=== PATIENT | male | born 1950 | race Caucasian/White ===

== ENCOUNTER → 2016-06-11 | Outpatient (CLI) | payer OTHER, MEDICARE ==
[2016-06-11 13:35] LABS: BASO % 0.3 %; BASO ABS # 0.02 K/uL (0-0.2); COMPLETE YES; EOS % 2.4 %; HEMATOCRIT 42.8 % (42-52); IG% 0.1 %; LYMPH % 20.2 %; LYMPH ABS # 1.54 K/uL (1.2-3.4); MEAN CELL VOLUME 87.3 fL (80-100); MEAN CORPUSCULAR HEMOGLOBIN 30.8 pg (25-34); MEAN CORPUSCULAR HGB CONC 35.3 g/dl (32-36); MEAN PLATELET VOLUME 10.9 fL (7.4-10.4); MONO % 8.5 %; NEUT % 68.5 %; PLATELET COUNT 239 K/uL (130-400); WHITE BLOOD COUNT 7.62 K/uL (4.8-10.8)
[2016-06-11 14:11] LABS: ALT/SGPT 55 U/L (12-78); AST/SGOT 22 U/L (15-37); BLOOD UREA NITROGEN 12 mg/dl (7-18); BUN/CREATININE RATIO 13.1 (10-20); CALCIUM 9.1 mg/dl (8.5-10.1); CARBON DIOXIDE 25 mmol/L (21-32); CHLORIDE 106 mmol/L (98-107); CREATININE 0.89 mg/dl (0.60-1.40); GLUCOSE 102 mg/dl (70-99); POTASSIUM 4.4 mmol/L (3.5-5.1); SODIUM 140 mmol/L (136-145)
[2016-06-11 14:16] LABS: ALB/GLOB RATIO 1.2 (0.9-2); ALKALINE PHOSPHATASE 60 U/L (45-117); CHOLESTEROL 185 mg/dl (0-200); CHOLESTEROL/HDL RATIO 2.5; HDL CHOLESTEROL 73 mg/dl; LDL CHOLESTEROL CALCULATED 97 mg/dl; TRIGLYCERIDES 76 mg/dl (0-150); VERY LOW DENSITY LIPOPROT CALC 15 mg/dl
[2016-06-11 14:31] LABS: ESTIMATED AVERAGE GLUCOSE 117 mg/dl; HA1C FLAG Normal (Normal)
--- NOTE | 2016-06-15 13:55 | CODING QUERY MEDICAL NECESSITY ---
CQSUPPORTING DIAGNOSIS NEEDED A supporting diagnosis is required for the test/procedure performed on this patient in order for us to be reimbursed by the patient's insurance. Please provide a supporting diagnosis for the following test/procedure listed below next to the test name along with your signature. *If there is no additional diagnosis for this patient that would support the following test/procedure please document that below next to the test/procedure. Test(s)/Procedure(s) that require a supporting diagnosis: DOS 06/11/16 GLYCATED HEMOGLOBIN PROSTATE SPECIFIC Provider Signature: Date: Thank you Summer Alvarado Health Information Management Once completed, please kindly fax back to [phone] For questions please call [phone]
== END | disposition home or self-care (01) ==
LOC: C.LABBC 11:09
PROVIDERS: ATTEND Internal Medicine
DX: R06.83 Snoring (principal); R73.09 Other abnormal glucose; Z12.5 Encounter for screening for malignant neoplasm of prostate

== ENCOUNTER → 2016-07-25 | Outpatient (CLI) | payer OTHER, MEDICARE ==
--- NOTE | 2016-07-26 06:47 | PAP/PSG TECHNICIAN REPORT ---
[facility] [employer] Polysomnogram Report Study name: None Report date: 07/26/2016 Study date: 07/25/2016 Referring Physician: DR. Jackie COOPER Name: TAMARA RITCHIE Interpreting Physician: Timothy Mullen M.D. Date of : 1950 [employer]: Devin George RPSGT. Sex: Male Age: 66 StudyType: PSG Weight: 232 lbs 18 inches Height: 66 years, Height Neck Circum: BMI: Medications: LISINOPRIL 20 MG, ASPIRIN 81 MG Patient History PATIENT HAS HISTORY OF CORONARY ARTERY DISEASE, HYPERTENSION, SNORING AND DAYTIME SLEEPINESS. ALSO, HAS WITNESSED APNEAS AT TIMES. HE IS HERE TODAY FOR AN EVALUATION OF DELANEY. ESS = 4 RM 7 Parameters Monitored NPSG: E1-M2, E2-M1, Fp1-M2, Fp2-M1, F3-M2, F4-M2, F4-M1, C3-M2, C4-M2, C4-M1, O1-M2, O2-M2, O2-M1, T3-M2, T4-M1, P3-M2, P4-M1, CHIN1, CHIN2, HR, EKG, Legs, PFLOW, SNOR, FLOW, CFLOW, Tidal Volume, THOR, ABDO, SpO2, PLTH, CPRESS, ETCO2 Wave, ETCO2, pH Sleep Architecture Sleep Stages Time at Lights Off 10:33:39 PM STAGES Time (min.) TST (%) Time at Lights On 5:28:09 AM Wake 109.0 -- Total Recording Time (TRT) 415.00 min. N1 31.0 10 Total Sleep Period (TSP) 403.5 min. N2 196.0 64 Total Sleep Time (TST) 305.5min. N3 31.0 10 Awake Time 109.0 min. REM 47.5 16 Wake after Sleep Onset 98.0 min. Sleep Efficiency (SE) 74 % Sleep Onset Latency (HEYDI) 11.0 min. Number of Stage 1 Shifts None Awakenings 28 Stage Changes 96 Number of REM periods 2 REM 47.5 16 REM Latency 108.5 min. NREM 258.0 84 Body Position Analysis Supine Right Left Side Prone Vertical Total Sleep Time (min.) 164.5 90.5 117.1 207.58 0.0 0.0 Total Sleep Time (%) 32% 30% 38% 68 0% N/A% Total Sleep Time REM (min.) 0.0 47.5 0.0 None 0.0 0.0 Total Sleep Time NREM (min.) 97.9 43.0 117.1 None 0.0 0.0 Intermittent Wake (min.) 66.6 8.3 34.1 None 0.0 0.0 Total Sleep Period (%) 38% None None None None None Arousals Myoclonus (PLM) * Events Count Index Events Count Index Spontaneous 18 4 Events Awake (PLMW) 1 0.6 Respiratory 3 0.6 Events Asleep w/ Arousal (PLMA) 9 1.8 PLM 9 2 Events Asleep w/o Arousal (PLMS) 537 105.5 Snoring 2 0 Total Asleep 546 107.2 Total 32 6 Total 547 79 Respiratory Analysis * CA OA MA CH H RERA Total Count 0 17 0 0 70 0 87 Index 0.0 3.3 0.0 0 13.7 0 17.1 Mean Duration 0.0 20.7 0.0 0.00 20.0 0.0 20.1 Longest Duration 0.0 37.8 0.0 0.00 0.0 0.0 56.2 Respiratory Event Summary Total Supine ~Supine Right Left Prone REM NREM Apneas Count 17 6 11 10 1 N/A 10 7 Index 3.3 4 3 6.6 0.5 N/A 13 2 Hypopneas (4% Desat) Count 70 44 26 26 0 N/A 21 49 Index 13.7 27.0 8 17.2 0.0 N/A 26.5 11.4 Apneas & All Hypopneas Count 87 50 37 36 1 N/A 31 56 Index 17.1 31 11 24 1 N/A 39.2 13.0 Respiratory Events ([employer] Teacher+All Hyp+RERA) Count 87 50 37 36 1 N/A 31 56 Index 17.1 31 11 23.9 0.5 N/A 39.2 13.0 Respiratory Related Arousal Count 3 50 0 0 0 N/A 0 3 Index 0.6 2 0 0 0 N/A 0 1 Snoring Analysis Supine Right Left Prone REM NREM Total Snore duration 33.3 min Snores count 481 380 517 N/A 190 1,188 1,378 Snore mean duration 1.5 Sec Snores index 295 252 265 N/A 240.0 276.3 270.6 TST with snoring (%) 10.9% Desaturation Event Summary: Minimum %SpO2 Event Count Mean/Min/Max Duration(sec.) Desaturation Index % Time In Bed > 90 85 29.3 / 10.5 / 60.0 13.5 92.9 86 - 90 2 17.5 / 11.0 / 24.0 4.2 7.0 81 - 85 0 N/A 0.0 0.1 76 - 80 0 N/A 0.0 0.0 71 - 75 0 N/A 0.0 0.0 66 - 70 0 N/A 0.0 0.0 61 - 65 0 N/A 0.0 0.0 56 - 60 0 N/A 0.0 0.0 51 - 55 0 N/A 0.0 0.0 < 50 0 N/A 0.0 0.0 Total REM NREM Awake <50% 0.0 min. 0.0 min. 0.0 min. 0.0 min. 51 - 60% 0.0 min. 0.0 min. 0.0 min. 0.0 min. 61 - 70% 0.0 min. 0.0 min. 0.0 min. 0.0 min. 71 - 80% 0.0 min. 0.0 min. 0.0 min. 0.0 min. 81 - 90% 28.7 min. 10.2 min. 17.1 min. 1.3 min. 91 - 100% 378.4 min. 37.3 min. 240.9 min. 100.2 min. Average 93 93 92 94 Minimum SpO2 77 83 86 77 Desaturation Event Index 12.3 35.4 13.3 0.0 # Desat. Events below 89% 28 10 18 0 Time(%) with Saturation below 89% 1.4 0.5 0.6 0.2 Time(min.) with Saturation below 89% 5.5 2.2 2.6 0.8 Time (mins) REM (mins) NREM (mins) % of TST SpO2 Below 90% 71 23 N48 3.6 SpO2 Below 88% 13 0 0 1 Heart Rate Analysis Min (bpm) Max (bpm) Average (bpm) Awake 57 84 67 NREM 56 77 63 REM 56 78 66 Overall 56 78 64 Supplemental O2 Values Minimum O2 level: None Value Start Time End Time [employer] Comments Mr. Ritchie slept in the right, left and supine positions. No cardiac arrhythmia noted. Leg movements noted. No bruxism noted. Snoring was noted and scored as a 3 on a scale of 1 through 5. (0=no snoring, 5=snoring loud enough to be heard through a closed door or down the lora way) Mr. Ritchie awoke to use the restroom 1 time during the night. Mr. Ritchie stated I slept as well as I do when I am in my own bed. The final report will be interpreted and signed by a sleep physician. The completed physician report will then be placed in the patient medical record. Therapy (cm H2O) 0 TIB (min.) 414.5 TST (min.) 305.5 Sleep Onset (min.) 11.0 REM Onset From Sleep (min.) 108.5 Sleep Efficiency % 74 Wakefulness (%) 26 Wakefulness (min.) 109.0 NREM 1 (%) 10 NREM 1 (min.) 31.0 NREM 2 (%) 64 NREM 2 (min.) 196.0 NREM 3 (%) 10 NREM 3 (min.) 31.0 REM (%) 16 REM (min.) 47.5 # Arousals 32 Arousal Index 6 # Snore 1,378 Snore Index 270.6 AHI 17.1 AHI Supine 31 AHI Non-Supine 11 NREM AHI 13.0 REM AHI 39.2 RDI 17.1 # Obstructive Apnea 17 # Central Apnea 0 # Mixed Apnea 0 # Hypopneas 70 RERAs 0 Total Respiratory Events 87 Time Below SpO2 89% (min.) 4.8 Mean NREM SpO2 (%) 92 Mean REM SpO2 (%) 93 Mean Sleep SpO2 (%) 92 Min NREM SpO2 (%) 86 Min REM SpO2 (%) 83 Position Supine (min.) 164.5 Position Non-supine (min.) 207.6 LM Index Sleep 107.2 LM Index NREM 125.3 LM Index REM 8.8 Mean Heart Rate (bpm) 64 Min Heart Rate (bpm) 56
--- NOTE | 2016-07-27 23:32 | POLYSOMNOGRAPH REPORT ---
CLINICAL DATA: A 66-year-old male with a history of coronary artery disease, hypertension, snoring and daytime sleepiness, also witnessed apnea, referred by Dr. Deepak Munguia for evaluation of possible sleep apnea. SLEEP ARCHITECTURE: Total sleep period was 403.5 minutes. Total sleep time was 305.5 minutes divided between 258 minutes of non-REM sleep and 47.5 minutes of REM sleep. Sleep onset latency was 11 minutes. REM latency was 108.5 minutes. Sleep efficiency was 74%. Wake after sleep onset was 98 minutes. Sleep consisted of stage N1 10%, N2 64%, N3 10%, REM 16%. AROUSAL DATA: 32 arousals were recorded for an index of 6 per hour. PLM DATA: Markedly elevated limb movements during sleep were noted. There were 546 limb movements during sleep noted for an index of 107.2 per hour with an arousal index of 1.8 per hour. RESPIRATORY DATA: Moderate sleep apnea was documented. The AHI was 17.1. There were 17 apneic episodes. The longest apneic episode was 37.8 seconds. There were 70 hypopneic episodes. The mean duration of hypopnea was 20 seconds. OXIMETRY DATA: Nocturnal hypoxemia was seen. Oxygen johann was 83% during REM. Mean saturation was 93%. Time below 88% was 13 minutes. HEART RATE DATA/EKG: Heart rates ranged from 56-78 beats per minute. No arrhythmias were noted. 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 Snoring was moderate, rated 3 on a scale of 1 through 5. IMPRESSION: Moderate sleep apnea/hypopnea with an AHI of 17.1 with nocturnal hypoxemia. RECOMMENDATIONS: This patient may benefit from a repeat sleep study with CPAP or use of an oral appliance. [facility]
== END | disposition home or self-care (01) ==
LOC: C.NEUR 21:00
PROVIDERS: ATTEND Internal Medicine Geriatric Medicine
DX: R06.83 Snoring (principal); G47.30 Sleep apnea, unspecified; R09.02 Hypoxemia

== ENCOUNTER → 2017-07-10 | Outpatient (CLI) | payer OTHER, MEDICARE ==
[2017-07-10 14:00] LABS: ALT/SGPT 44 U/L (12-78); BLOOD UREA NITROGEN 13 mg/dl (7-18); CALCIUM 9.3 mg/dl (8.5-10.1); CARBON DIOXIDE 25 mmol/L (21-32); CHOLESTEROL 169 mg/dl (0-200); CREATININE 0.77 mg/dl (0.60-1.40); GLUCOSE 102 mg/dl (70-99); POTASSIUM 4.4 mmol/L (3.5-5.1); SODIUM 136 mmol/L (136-145)
[2017-07-10 14:07] LABS: ALKALINE PHOSPHATASE 53 U/L (45-117); AST/SGOT 22 U/L (15-37); LDL CHOLESTEROL CALCULATED 92 mg/dl; TOTAL PROTEIN 7.5 gm/dl (6.4-8.2)
[2017-07-10 14:28] LABS: HEMOGLOBIN A1C 5.5 % (4.5-5.6)
== END | disposition home or self-care (01) ==
LOC: C.LABBC 09:25
PROVIDERS: ATTEND Physician Assistant Medical
DX: R73.09 Other abnormal glucose (principal); E78.5 Hyperlipidemia, unspecified; I25.10 Atherosclerotic heart disease of native coronary artery without angina pectoris; R35.1 Nocturia